=== PATIENT | female | born 1975 | race Caucasian/White ===

== ENCOUNTER 2017-10-30 17:41 | Emergency (ER) | payer SELFPAY, MEDICAID ==
[2017-10-30] MEDS: SOD CHLORIDE 0.9% 1,000 ML IV (20:02)
[2017-10-30] MEDS: METOCLOPRAMIDE 10 MG INJ IV (20:02)
[2017-10-30] MEDS: DIPHENHYDRAMINE 50 MG INJ IV (20:02)
[2017-10-30 20:31] LABS: ADD MAN DIFF? NO
[2017-10-30 20:37] LABS: BASOPHILS % 0.2 % (0.0-2.0); EOSINOPHILS # 0.1 10^3/ul (0.0-0.5); EOSINOPHILS % 0.7 % (0.0-7.0); HEMATOCRIT 39.2 % (37.0-47.0); LYMPHOCYTES # 3.2 10^3/ul (0.8-2.9); LYMPHOCYTES % 27.7 % (15.0-51.0); MEAN CORPUSCULAR HEMOGLOBIN 28.8 pg (29.0-33.0); MEAN CORPUSCULAR HGB CONC 33.2 g/dl (32.0-37.0); MEAN CORPUSCULAR VOLUME 86.9 fl (82.0-101.0); MEAN PLATELET VOLUME 10.4 fl (7.4-10.4); MONOCYTE # 1.2 10^3/ul (0.3-0.9); MONOCYTES % 10.2 % (0.0-11.0); NEUTROPHIL # 7.1 10^3/ul (1.6-7.5); NEUTROPHILS % 60.9 % (39.0-77.0); PLATELET COUNT 295 10^3/UL (140-415); RED BLOOD COUNT 4.51 10^6/ul (4.20-5.40); RED CELL DISTRIBUTION WIDTH 13.5 % (11.5-14.5)
[2017-10-30 20:37] LABS: WHITE BLOOD COUNT 11.7 10^3/ul (4.8-10.8)
[2017-10-30 21:04] LABS: ANION GAP 16 (8-16); BLOOD UREA NITROGEN 15 mg/dl (7-20); CALCIUM 9.7 mg/dl (8.4-10.2); CARBON DIOXIDE 23 mmol/L (21-31); CHLORIDE 105 mmol/L (97-110); GLUCOSE 103 mg/dl (70-220); SODIUM 140 mmol/L (135-144)
[2017-10-30 21:06] LABS: INR 0.89; PROTIME 12.1 Sec (11.9-14.9); PT RATIO 0.9
[2017-10-30 21:07] LABS: PARTIAL THROMBOPLASTIN TIME 28.1 Sec (25.0-35.0)
[2017-10-30 21:20] LABS: TROPONIN-I < 0.012 ng/ml (0.00-0.12)
[2017-10-30] MEDS: KETOROLAC 30 MG INJ IV (23:02)
== END 2017-10-30 23:21 | disposition home or self-care (01) ==
LOC: E/R 17:41
DX: R51 Headache (principal); G89.29 Other chronic pain; R07.9 Chest pain, unspecified; E11.9 Type 2 diabetes mellitus without complications
CPT/HCPCS: 36415; 70450; 71045; 80048; 82962; 84484; 84703; 85025; 85378; 85610; 85730; 93005; 96374; 96375; 99285-25